=== PATIENT | female | born 1945 | race Caucasian/White ===

== ENCOUNTER 2017-01-08 13:17 | Outpatient (CLI) | payer MEDICARE | END 2017-01-08 13:18 | disposition home or self-care (01) | LOC: DI 13:17 | PROVIDERS: ATTEND Internal Medicine | DX: R60.1 Generalized edema (principal); I51.7 Cardiomegaly; I50.1 Left ventricular failure, unspecified | CPT/HCPCS: 93306 ==

== ENCOUNTER 2018-03-18 13:55 | Outpatient (CLI) | payer MEDICARE ==
[2018-03-18 19:20] LABS: HGB - HEMOGLOBIN 15.8 g/dL (12.0-16.0); MEAN CORPUSCULAR HEMOGLOBIN 28.9 pg (27.0-31.0); MEAN CORPUSCULAR HGB CONC 32.9 g/dL (32.0-36.0); MEAN PLATELET VOLUME 8.1 fL (7.9-10.8); RED BLOOD COUNT 5.48 10^6/uL (4.20-5.40); RED CELL DISTRIBUTION WIDTH 14.6 % (12.0-15.0); WHITE BLOOD COUNT 10.8 x10^3/uL (4.8-10.8)
[2018-03-18 19:21] LABS: CALCIUM 9.4 mg/dL (8.5-10.3); CREATININE 1.1 mg/dL (0.4-1.0)
== END 2018-03-18 13:56 | disposition home or self-care (01) ==
LOC: LAB.WCP 13:55
PROVIDERS: ATTEND Family Medicine
DX: I50.9 Heart failure, unspecified (principal)
CPT/HCPCS: 36415; 80048; 83880; 85027

== ENCOUNTER 2018-03-25 13:51 | Outpatient (CLI) | payer MEDICARE ==
[2018-03-25 19:04] LABS: HGB - HEMOGLOBIN 16.2 g/dL (12.0-16.0); MEAN CORPUSCULAR HEMOGLOBIN 28.6 pg (27.0-31.0); MEAN CORPUSCULAR HGB CONC 32.7 g/dL (32.0-36.0); MEAN CORPUSCULAR VOLUME 87.5 fL (81.0-99.0); MEAN PLATELET VOLUME 7.8 fL (7.9-10.8); RED BLOOD COUNT 5.66 10^6/uL (4.20-5.40); RED CELL DISTRIBUTION WIDTH 14.7 % (12.0-15.0); WHITE BLOOD COUNT 6.8 x10^3/uL (4.8-10.8)
[2018-03-25 19:15] LABS: CALCIUM 9.5 mg/dL (8.5-10.3); CREATININE 1.1 mg/dL (0.4-1.0)
== END 2018-03-25 13:52 | disposition home or self-care (01) ==
LOC: LAB.WCP 13:51
PROVIDERS: ATTEND Family Medicine
DX: I83.009 Varicose veins of unspecified lower extremity with ulcer of unspecified site (principal); I50.9 Heart failure, unspecified
CPT/HCPCS: 36415; 80048; 83880; 85027

== ENCOUNTER 2018-04-01 08:00 | Outpatient (CLI) | payer MEDICARE ==
[2018-04-01 18:50] LABS: HGB - HEMOGLOBIN 15.4 g/dL (12.0-16.0); MEAN CORPUSCULAR HEMOGLOBIN 28.5 pg (27.0-31.0); MEAN CORPUSCULAR HGB CONC 33.1 g/dL (32.0-36.0); MEAN CORPUSCULAR VOLUME 86.1 fL (81.0-99.0); RED BLOOD COUNT 5.39 10^6/uL (4.20-5.40); RED CELL DISTRIBUTION WIDTH 14.8 % (12.0-15.0); WHITE BLOOD COUNT 7.2 x10^3/uL (4.8-10.8)
== END 2018-04-01 08:01 | disposition home or self-care (01) ==
LOC: LAB.WCP 08:00
PROVIDERS: ATTEND Family Medicine
DX: R06.09 Other forms of dyspnea (principal); R06.00 Dyspnea, unspecified
CPT/HCPCS: 36415; 80048; 83880; 85027

== ENCOUNTER 2018-04-14 13:49 | Outpatient (CLI) | payer MEDICARE ==
[2018-04-14 18:51] LABS: HGB - HEMOGLOBIN 15.3 g/dL (12.0-16.0); MEAN CORPUSCULAR HEMOGLOBIN 28.5 pg (27.0-31.0); MEAN CORPUSCULAR VOLUME 86.3 fL (81.0-99.0); MEAN PLATELET VOLUME 8.4 fL (7.9-10.8); RED BLOOD COUNT 5.37 10^6/uL (4.20-5.40); RED CELL DISTRIBUTION WIDTH 15.3 % (12.0-15.0); WHITE BLOOD COUNT 6.1 x10^3/uL (4.8-10.8)
[2018-04-14 19:11] LABS: CALCIUM 9.3 mg/dL (8.5-10.3); CREATININE 0.8 mg/dL (0.4-1.0)
== END 2018-04-14 13:50 | disposition home or self-care (01) ==
LOC: LAB.WCP 13:49
PROVIDERS: ATTEND Family Medicine
DX: R06.09 Other forms of dyspnea (principal); R06.00 Dyspnea, unspecified
CPT/HCPCS: 36415; 80048; 83880; 85027

== ENCOUNTER 2018-05-18 14:26 | Inpatient (IN) | payer MEDICARE ==
--- NOTE | 2018-05-18 15:06 | ED Physician Documentation ---
History of Present Illness - Stated complaint Stated Complaint: WEAKNESS/DIZZY - Chief complaint Chief Complaint: General - Additonal information Additional information: hx from pt 73 f hx CHF was working in yard and felt weak and dizzy and had jaw pain and palp with HR up to 130 no CP no SOA no NV no diaphoresis otherwise well recently Review of Systems Constitutional: reports: Fatigue. denies: Fever, Chills, Sweats Cardiac: reports: Palpitations. denies: Chest pain / pressure (only jaw pain) Respiratory: denies: Dyspnea, Cough GI: denies: Abdominal Pain, Nausea, Vomiting Endocrine: denies: Easy bruising / bleeding Immunocompromised: denies: Immunocompromised PD PAST MEDICAL HISTORY - Past Medical History Cardiovascular: Congestive heart failure, Hypertension, Peripheral Vascular Disease Respiratory: Shortness of breath Neuro: None Endocrine/Autoimmune: None GI: None : None HEENT: Chronic vision loss Psych: Claustrophobia Musculoskeletal: None Derm: None - Past Surgical History /LAND CLASSIFIER: section - Present Medications Home Medications: Ambulatory Orders Medication Instructions Recorded Confirmed Furosemide 20 mg PO DAILY 05/18/18 05/18/18 Lisinopril 20 mg PO DAILY 05/18/18 05/18/18 Metoprolol Tartrate 25 mg PO BID 05/18/18 05/18/18 Spironolactone 25 mg PO DAILY 05/18/18 05/18/18 - Allergies Allergies/Adverse Reactions: Allergies Allergy/AdvReac Type Severity Reaction Status Date / Time No Known Drug Allergies Allergy Verified 05/18/18 14:53 - Social History Smoking Status: Former smoker PD ED PE NORMAL - Vitals Vital signs reviewed: Yes - General General: Alert and oriented X 3 - Neck Neck: Supple, no meningeal sign - Cardiac Cardiac: RRR - Respiratory Respiratory: No respiratory distress, Clear bilaterally - Abdomen Abdomen: Soft, Non tender - Derm Derm: Normal color - Extremities Extremities: No edema, No calf tenderness / cord - Neuro Neuro: Alert and oriented X 3 Results - Vitals Vitals: Vital Signs - 24 hr 05/18/18 05/18/18 05/18/18 14:38 16:30 16:54 Temperature 36.3 C L Heart Rate 69 49 L 57 L Respiratory 20 18 18 Rate Blood Pressure 150/80 H 163/66 H 175/77 H O2 Saturation 94 98 98 Oxygen O2 Source Room air - EKG (time done) 1451 Rate: Rate (enter#) (67) Rhythm: NSR Intervals: LBBB Ischemia: Other (neg sgarbossa) 1507 Other comments: Other comments (right sided EKG = also c/w LBBB) - Labs Labs: Laboratory Tests 05/18/18 05/18/18 05/18/18 15:28 15:28 15:28 WBC 5.7 RBC 5.52 H Hgb 15.8 Hct 47.0 MCV 85.3 MCH 28.6 MCHC 33.5 RDW 15.7 H Plt Count 163 MPV 7.6 L Neut # (Auto) 3.7 Lymph # (Auto) 1.4 L [place] # (Auto) 0.5 Eos # (Auto) 0.1 Baso # (Auto) 0.0 Absolute Nucleated RBC 0.01 Nucleated RBC % 0.1 Sodium 141 Potassium 3.1 L Chloride 101 Carbon Dioxide 31 Anion Gap 9.0 BUN 17 Creatinine 0.8 Estimated GFR (MDRD) 70 L Glucose 102 H Calcium 9.6 Total Bilirubin 1.0 AST 29 ALT 20 Alkaline Phosphatase 59 Troponin I 0.04 Total Protein 6.9 Albumin 4.2 Globulin 2.7 Albumin/Globulin Ratio 1.6 Lipase 47 - Rads (name of study) CXR Radiology: See rad report (borderline cardiomegaly, no acute infiltrate) PD MEDICAL DECISION MAKING - ED course ED course: no old EKG in [facility] called PMD and they have no old EKG either but pt had an echo in 2017 that showed severe LV dysfxn and EF < 20% sx had subsided upon arrival showed EKGs to inpt hospitalist who is also a outside plant technician Dr Gamboa , not a STEMI 1st trop neg will admit for serial CE echo stress etc spoke to hospitalist re admission at 1610 pt given asa in ED no BB 2/2 HR no nitro 2/2 no pain now later in ED stay pt did find name of her outside plant technician Dr Brock at [facility] and DIRECTOR CHEMISTRY was able to obtain old EKGs which also showed LBB, only difference is now Ts are upright laterally - Sepsis Event Vital Signs: Vital Signs - 24 hr 05/18/18 05/18/18 05/18/18 14:38 16:30 16:54 Temperature 36.3 C L Heart Rate 69 49 L 57 L Respiratory 20 18 18 Rate Blood Pressure 150/80 H 163/66 H 175/77 H O2 Saturation 94 98 98 Oxygen O2 Source Room air Departure - Departure Disposition: ED Place in Observation Clinical Impression: Jaw pain, Abnormal EKG Condition: Fair Discharge Date/Time: 05/18/18 18:05
[2018-05-18] MEDS ORDERED: ASPIRIN CHEW 81 MG TABLET PO STA (15:21)
[2018-05-18 15:40] LABS: BASOPHILS % (AUTO) 0.3 %; EOSINOPHILS # (AUTO) 0.1 10^3/uL (0.0-0.7); EOSINOPHILS % (AUTO) 2.1 %; HGB - HEMOGLOBIN 15.8 g/dL (12.0-16.0); LYMPHOCYTES # (AUTO) 1.4 10^3/uL (1.5-3.5); LYMPHOCYTES % (AUTO) 23.9 %; MEAN CORPUSCULAR HEMOGLOBIN 28.6 pg (27.0-31.0); MEAN CORPUSCULAR HGB CONC 33.5 g/dL (32.0-36.0); MEAN CORPUSCULAR VOLUME 85.3 fL (81.0-99.0); MEAN PLATELET VOLUME 7.6 fL (7.9-10.8); MONOCYTES # (AUTO) 0.5 10^3/uL (0.0-1.0); MONOCYTES % (AUTO) 9.6 %; NEUTROPHILS # (AUTO) 3.7 10^3/uL (1.5-6.6); NEUTROPHILS % (AUTO) 64.1 %; PLT - PLATELET COUNT 163 10^3/uL (130-450); RED BLOOD COUNT 5.52 10^6/uL (4.20-5.40); RED CELL DISTRIBUTION WIDTH 15.7 % (12.0-15.0); WHITE BLOOD COUNT 5.7 x10^3/uL (4.8-10.8)
[2018-05-18 15:47] LABS: ALBUMIN 4.2 g/dL (3.2-5.5); ALBUMIN/GLOBULIN RATIO 1.6 (1.0-2.2); CALCIUM 9.6 mg/dL (8.5-10.3); CREATININE 0.8 mg/dL (0.4-1.0); TOTAL PROTEIN 6.9 g/dL (6.7-8.2)
--- NOTE | 2018-05-18 16:17 | XRAY Report ---
Reason: exertional jaw pain Procedure Date: 05/18/2018 Accession Number: [id number] / [id number] Procedure: XR - Chest 2 View X-Ray CPT Code: 37035 FULL RESULT: EXAM: CHEST RADIOGRAPHY EXAM DATE: 05/18/2018 03:53 PM. CLINICAL HISTORY: Exertional jaw pain. COMPARISON: 04/01/2018. TECHNIQUE: 2 views. FINDINGS: Lungs/Pleura: No focal opacities evident. No pleural effusion. No pneumothorax. Normal volumes. Mediastinum: Borderline cardiac size. Calcified aorta, otherwise normal. Other: Some demineralization and exaggerated kyphosis, with degenerative changes at the endplates. No obvious compression fracture deformity. IMPRESSION: No acute disease. RADIA
[2018-05-18] MEDS ORDERED: SODIUM CHLORIDE FLUSH 0.9% 10 ML SYRINGE IVP PRN (17:19)
[2018-05-18] MEDS ORDERED: ACETAMINOPHEN 325 MG TABLET PO PRN (17:19)
[2018-05-18] MEDS ORDERED: PROCHLORPERAZINE 10 MG/2 ML VIAL IVP PRN (17:19)
[2018-05-18] MEDS ORDERED: POTASSIUM CHLORIDE 20 MEQ TABLET PO STA (17:25)
[2018-05-18] MEDS: METOPROLOL TARTRATE 25 MG TABLET PO SCH (20:16)
[2018-05-18] MEDS ORDERED: NITROGLYCERIN SL 0.4 MG TABLET SL PRN (20:42)
[2018-05-19] MEDS: SODIUM CHLORIDE FLUSH 0.9% 10 ML SYRINGE IVP SCH ×4 (01:19→23:49)
[2018-05-19 06:46] LABS: BASOPHILS % (AUTO) 0.4 %; EOSINOPHILS # (AUTO) 0.2 10^3/uL (0.0-0.7); EOSINOPHILS % (AUTO) 3.1 %; HGB - HEMOGLOBIN 16.4 g/dL (12.0-16.0); LYMPHOCYTES # (AUTO) 1.2 10^3/uL (1.5-3.5); LYMPHOCYTES % (AUTO) 24.5 %; MEAN CORPUSCULAR HGB CONC 33.5 g/dL (32.0-36.0); MEAN CORPUSCULAR VOLUME 86.5 fL (81.0-99.0); MEAN PLATELET VOLUME 7.8 fL (7.9-10.8); MONOCYTES # (AUTO) 0.5 10^3/uL (0.0-1.0); MONOCYTES % (AUTO) 10.7 %; NEUTROPHILS % (AUTO) 61.3 %; PLT - PLATELET COUNT 170 10^3/uL (130-450); RED BLOOD COUNT 5.65 10^6/uL (4.20-5.40); RED CELL DISTRIBUTION WIDTH 16.1 % (12.0-15.0); WHITE BLOOD COUNT 4.9 x10^3/uL (4.8-10.8)
[2018-05-19 06:54] LABS: CALCIUM 9.6 mg/dL (8.5-10.3); CREATININE 0.9 mg/dL (0.4-1.0); MAGNESIUM 2.4 mg/dL (1.7-2.8)
[2018-05-19] MEDS: FUROSEMIDE 20 MG TABLET PO SCH ×2 (08:57→17:16)
[2018-05-19] MEDS: METOPROLOL TARTRATE 25 MG TABLET PO SCH ×2 (08:58→20:45)
[2018-05-19] MEDS: POLYETHYLENE GLYCOL 3350 17 GM PACKET PO SCH (08:58)
[2018-05-19] MEDS: LISINOPRIL 20 MG TABLET PO SCH (08:58)
[2018-05-19] MEDS: FAMOTIDINE 20 MG TABLET PO SCH (08:58)
[2018-05-19] MEDS: SPIRONOLACTONE 25 MG TABLET PO SCH (08:59)
[2018-05-19] MEDS ORDERED: SPIRONOLACTONE 25 MG TABLET PO SCH (09:00)
[2018-05-19] MEDS ORDERED: FUROSEMIDE 20 MG TABLET PO SCH (09:00)
[2018-05-19] MEDS ORDERED: SPIRONOLACTONE 25 MG TABLET PO ONE (17:15)
[2018-05-19] MEDS: SACCHAROMYCES BOULARDII 250 MG CAPSULE PO SCH ×2 (17:17→17:23)
--- NOTE | 2018-05-20 01:22 | HISTORY & PHYSICAL EXAMINATION ---
DATE OF SERVICE: 05/18/2018 Physician: Delphine Walton MD HISTORY OF PRESENT ILLNESS: This is a 73-year-old, white female with a history of hypertension that she admits was untreated for many years. One year ago, she went to her doctor for complaints of leg edema and an Echo was done that showed a cardiomyopathy with ejection fraction of 15% to 20%. She was started on beta blockers and diuretics, and other medications are unknown; she was compliant with these. She was also sent to see a Quality Review Trainer who, she states, ordered a stress test and a Holter monitor. She did not have either of these done for "excessive co-pay when she checked with her insurance." She did continue to take the medications and switched primary doctors, saw him in January of this year. She was having worse leg edema. She had adjustment of her diuretics and other management, and was also referred to [facility], where she has been seen several times for weaping water blisters of the lower extremities that got care and have healed, after management from the [facility]. The patient has been doing some gardening and outdoor work, and required carrying heavy pails and, with this, she started to get chest tightness 3 days ago. She sat and rested, and the symptoms went away. Two days later, she had similar symptoms with exertion and had chest tightness that radiated to the left neck, jaw and left ear. With this, she had palpitations and measured her own heart rate using a pulse oximeter that she had at home, and states that her heart rate was extremely variable, between 50, and as high as 130. With these symptoms, she presented to the emergency room after calling her PCP and being told to go to the ER. She has never had symptoms like this. She has never had a stress test, as was first recommended by the Quality Review Trainer about 13 months ago. She denies any syncope, dizziness, or lightheadedness. Denies orthopnea or PND. She states that the leg edema goes up and down, and she does try to elevate her legs when sitting. This is the first time she has ever had palpitations. She states she is compliant with her medications as currently prescribed by the new PCP. . PAST MEDICAL HISTORY 1. Hypertension that apparently was untreated for many years. 2. Leg edema. 3. Cardiomyopathy by Echo, which was done December 2016. ALLERGIES: NONE. MEDICATIONS 1. Spironolactone 25 mg daily. 2. Metoprolol tartrate 25 mg b.i.d. 3. Lisinopril 20 mg daily. 4. Lasix 20 mg daily. FAMILY HISTORY: No family history of heart disease. No inherited diseases, such as cancer. SOCIAL HISTORY: She is an ex-smoker, who quit 1 year ago. She denies any alcohol use or illicit drug use. She lives in a camper by herself. She lives on a [address] next to her sister and [id number], who also have 5 acres of land and own a farm. She was never , has no children. REVIEW OF SYSTEMS: A comprehensive review of systems was performed and the pertinent positives are in the HPI, the rest are negative. PHYSICAL EXAMINATION GENERAL: A white female who is in no distress. She is edentulous. VITAL SIGNS: Blood pressure 150/80, heart rate 69 in sinus rhythm, afebrile, respiratory rate 20, room air saturation 94%. HEENT: Reveals moist oral mucosa. Edentulous. NECK: Without JVD in a vertical position. No carotid bruits. CHEST: Left basal crackles. No rales or rhonchi. CARDIOVASCULAR: Heart sounds have a 2/6 systolic murmur at the lower left sternal border. There is no RV heave. There is no gallop. ABDOMEN: Soft, positive bowel sounds, nontender, not distended. EXTREMITIES: Show 3+ edema to below the knees. She has on ALYLA stockings. The skin was not examined over the lower extremities. NEUROLOGIC: Intact. LABORATORIES: Sodium 141, potassium 3.1, BUN 17, creatinine 0.8. Normal liver tests. Normal bilirubin. Troponin 0.04. EKG: Normal sinus rhythm, left bundle branch block. An old EKG was just found, which also shows sinus rhythm and left bundle branch block from 1 year ago. Chest x-ray: Borderline enlarged cardiac size, calcified aorta. No evidence of CHF. IMPRESSION/DIAGNOSES 1. Unstable angina (new onset of anginal type symptoms). 2. Leg edema. 3. Cardiomyopathy, with severely reduced systolic function, by Echocardiogram done 1 year ago. 4. Palpitations with apparent documented heart rate of 130 briefly. 5. Pulmonary hypertension by Echocardiogram from 01/14. PLAN: Admit patient to telemetry to monitor for tachy dysrhythmia. She is at risk of VTach with this severely reduced LVEF. Obtain an Echo to recheck LV contractility, as well as valve function and PA pressure. Continue with her medications for systolic heart failure including beta rita, EDDA inhibitor, Lasix and Spironolactone. Follow her BMP and magnesium daily, daily weights and I's and O's. Depending on the results of the Echo, current LVEF and troponin values, proceed to a stress test to complete the workup for determining cause of cardiomyopathy. If global hypokinesis is seen, she may have a burned out, untreated hypertensive cardiomyopathy or a valvular cardiomyopathy. There may be need for transfer for an angiogram if the stress test is abnormal, or consideration for transfer for a defibrillator since her EF was severely below 40% one year ago and she is now more than 3 months post documented cardiomyopathy. Alternatively, a LifeVest could be offered and she would then need outpatient followup with a new Quality Review Trainer. CODE STATUS: FULL CODE. DEEP VENOUS THROMBOSIS PROPHYLAXIS: SCDs. ATTESTATION: The patient is expected to be discharged or transferred to another facility within 96 hours: Yes. TD: 05/19/2018 19:17 SAEID
[2018-05-20 06:50] LABS: BASOPHILS % (AUTO) 0.4 %; EOSINOPHILS # (AUTO) 0.1 10^3/uL (0.0-0.7); EOSINOPHILS % (AUTO) 2.7 %; HGB - HEMOGLOBIN 15.3 g/dL (12.0-16.0); LYMPHOCYTES # (AUTO) 1.4 10^3/uL (1.5-3.5); LYMPHOCYTES % (AUTO) 25.9 %; MEAN CORPUSCULAR HEMOGLOBIN 28.8 pg (27.0-31.0); MEAN CORPUSCULAR HGB CONC 33.7 g/dL (32.0-36.0); MEAN CORPUSCULAR VOLUME 85.6 fL (81.0-99.0); MEAN PLATELET VOLUME 7.8 fL (7.9-10.8); MONOCYTES # (AUTO) 0.6 10^3/uL (0.0-1.0); MONOCYTES % (AUTO) 10.2 %; NEUTROPHILS # (AUTO) 3.3 10^3/uL (1.5-6.6); NEUTROPHILS % (AUTO) 60.8 %; PLT - PLATELET COUNT 163 10^3/uL (130-450); RED BLOOD COUNT 5.32 10^6/uL (4.20-5.40); WHITE BLOOD COUNT 5.5 x10^3/uL (4.8-10.8)
[2018-05-20 06:59] LABS: CALCIUM 9.2 mg/dL (8.5-10.3); CREATININE 0.8 mg/dL (0.4-1.0)
[2018-05-20] MEDS: SACCHAROMYCES BOULARDII 250 MG CAPSULE PO SCH ×2 (08:10→17:21)
[2018-05-20] MEDS: METOPROLOL TARTRATE 25 MG TABLET PO SCH (08:10)
[2018-05-20] MEDS: FAMOTIDINE 20 MG TABLET PO SCH (08:13)
[2018-05-20] MEDS: FUROSEMIDE 20 MG TABLET PO SCH ×2 (08:13→17:22)
[2018-05-20] MEDS: LISINOPRIL 20 MG TABLET PO SCH (08:14)
[2018-05-20] MEDS: SPIRONOLACTONE 25 MG TABLET PO SCH (08:14)
[2018-05-20] MEDS: POLYETHYLENE GLYCOL 3350 17 GM PACKET PO SCH (08:16)
[2018-05-20] MEDS: SODIUM CHLORIDE FLUSH 0.9% 10 ML SYRINGE IVP SCH (08:16)
--- NOTE | 2018-05-20 13:03 | PROVIDER PROGRESS NOTE ---
Assessment/Plan - Problem List (1) Unstable angina Assessment/Plan: No further chest tightness or jaw pain at rest, since admission. Trponins are flat, ruling out an acute LA. Plan to proceed to a pharmaceutical stress test. I explained this to patient, who agrees. Continue B-rita. Start ASA daily. (2) Cardiomyopathy Assessment/Plan: The Echo done today showed similar LVEF of 20%, as 1 year ago. Per her description of activity that she can tolerate, she is NYHA class II. The etiology of depressed LVEF has not been elucidated yet. She needs a stress test to evaluate for CAD as the cause of severe systolic heart failure. Continue treating her chronic systolic LV dysfunction with B-blockers, EDDA- Inhibitor and Spironolactone. Monitor Mag, Na, K, BUN/creat, and daily weight. Obtain a BNP. (3) Leg edema Assessment/Plan: As in #2. She likely has RV dysfunction as well as LV failure. It does not appear to be from CKD or liver disease. (4) Hypokalemia Assessment/Plan: Replace. Monitor BMP daily. - Current Meds Current Meds: Current Medications Generic Name Dose Route Start Last Admin Trade Name Freq PRN Reason Stop Dose Admin Famotidine 20 mg 05/19/18 09:00 05/20/18 08:13 Pepcid PO Not Given DAILY MORRIS Furosemide 30 mg 05/19/18 09:00 05/20/18 08:13 Lasix PO 30 mg 0900,1500 MORRIS Administration Lisinopril 20 mg 05/19/18 09:00 05/20/18 08:14 Zestril PO 20 mg DAILY MORRIS Administration Metoprolol Tartrate 25 mg 05/18/18 21:00 05/20/18 08:10 Lopressor PO 25 mg BID MORRIS Administration Polyethylene Glycol 17 gm 05/19/18 09:00 05/20/18 08:16 Miralax PO Not Given DAILY MORRIS Saccharomyces Boulardii 250 mg 05/19/18 17:00 05/20/18 08:10 Florastor PO Not Given BIDWM MORRIS Sodium Chloride 10 ml 05/19/18 01:00 05/20/18 08:16 Normal Saline Flush 0.9% IVP 10 ml 0100,0900,1700 MORRIS Administration Spironolactone 25 mg 05/19/18 09:00 05/20/18 08:14 Aldactone PO 25 mg DAILY MORRIS Administration - Lab Result Fish Bone Diagrams: 05/20/18 06:15 05/20/18 06:15 - Additional Planning My Orders: My Active Orders 05/19/18 17:00 Saccharomyces Lynni [Florastor] 250 mg PO BIDWM 05/20/18 Myocardial Perfusion STR/RST [NM] Routine 05/20/18 09:00 NPO [DIET] Plan Discussed with:: Patient Subjective - Subjective Patient Reports: Resting Comfortably Nursing Reports: Other (Refused am Spironolactone "because she was only taking Lasix at home".) Objective Vital Signs: Vital Signs - 24 hr 05/19/18 05/19/18 05/19/18 15:17 17:30 20:45 Temperature 36.7 C Heart Rate [ 58 L 55 L Brachial] Respiratory 18 Rate Blood Pressure 168/61 H Blood Pressure 160/64 H 167/62 H [Left Brachial artery] O2 Saturation 98 05/19/18 05/19/18 05/20/18 20:48 23:30 05:30 Temperature 36.2 C L 36.4 C L 36.5 C Heart Rate [ 70 50 L 54 L Brachial] Respiratory 16 18 18 Rate Blood Pressure Blood Pressure 168/61 H 140/65 H 117/48 L [Left Brachial artery] O2 Saturation 96 95 97 05/20/18 05/20/18 08:10 08:14 Temperature 36.3 C L Heart Rate [ 49 L Brachial] Respiratory 16 Rate Blood Pressure 136/67 H Blood Pressure 136/57 H [Left Brachial artery] O2 Saturation 94 Oxygen O2 Source Room air I&O (Last 24 Hrs): Intake and Output Totals x24h 05/18/18 05/19/18 05/20/18 23:59 23:59 23:59 Intake Total 100 1240 670 Balance 100 1240 670 General: Alert, Oriented x3 HEENT: Mucous membr. moist/pink, Other (Edentulous) Neck: Supple, No JVD Neuro: Non Focal Cardiovascular: Regular rate, Other (2/6 systolic murmur at LLSB, no S3.) Abdomen: Soft Extremities: Other (2+ tense edema to below shins, she is wearing compression stockings.) - Results Results: Laboratory Results WBC 5.5 x10^3/uL (4.8-10.8) 05/20/18 06:15 RBC 5.32 10^6/uL (4.20-5.40) 05/20/18 06:15 Hgb 15.3 g/dL (12.0-16.0) 05/20/18 06:15 Hct 45.6 % (37.0-47.0) 05/20/18 06:15 MCV 85.6 fL (81.0-99.0) 05/20/18 06:15 MCH 28.8 pg (27.0-31.0) 05/20/18 06:15 MCHC 33.7 g/dL (32.0-36.0) 05/20/18 06:15 RDW 16.0 % (12.0-15.0) H 05/20/18 06:15 Plt Count 163 10^3/uL (130-450) 05/20/18 06:15 MPV 7.8 fL (7.9-10.8) L 05/20/18 06:15 Neut # (Auto) 3.3 10^3/uL (1.5-6.6) 05/20/18 06:15 Lymph # (Auto) 1.4 10^3/uL (1.5-3.5) L 05/20/18 06:15 [place] # (Auto) 0.6 10^3/uL (0.0-1.0) 05/20/18 06:15 Eos # (Auto) 0.1 10^3/uL (0.0-0.7) 05/20/18 06:15 Baso # (Auto) 0.0 10^3/uL (0.0-0.1) 05/20/18 06:15 Absolute Nucleated RBC 0.01 x10^3/uL 05/20/18 06:15 Nucleated RBC % 0.2 /100WBC 05/20/18 06:15 Sodium 142 mmol/L (135-145) 05/20/18 06:15 Potassium 3.2 mmol/L (3.5-5.0) L 05/20/18 06:15 Chloride 107 mmol/L (101-111) 05/20/18 06:15 Carbon Dioxide 27 mmol/L (21-32) 05/20/18 06:15 Anion Gap 8.0 (6-13) 05/20/18 06:15 BUN 26 mg/dL (6-20) H 05/20/18 06:15 Creatinine 0.8 mg/dL (0.4-1.0) 05/20/18 06:15 Estimated GFR (MDRD) 70 (>89) L 05/20/18 06:15 Glucose 107 mg/dL (70-100) H 05/20/18 06:15 Calcium 9.2 mg/dL (8.5-10.3) 05/20/18 06:15 Magnesium 2.4 mg/dL (1.7-2.8) 05/19/18 06:12 Total Bilirubin 1.0 mg/dL (0.2-1.0) 05/18/18 15:28 AST 29 IU/L (10-42) 05/18/18 15:28 ALT 20 IU/L (10-60) 05/18/18 15:28 Alkaline Phosphatase 59 IU/L (42-121) 05/18/18 15:28 Troponin I 0.04 ng/mL (<0.49) 05/19/18 06:12 Total Protein 6.9 g/dL (6.7-8.2) 05/18/18 15:28 Albumin 4.2 g/dL (3.2-5.5) 05/18/18 15:28 Globulin 2.7 g/dL (2.1-4.2) 05/18/18 15:28 Albumin/Globulin Ratio 1.6 (1.0-2.2) 05/18/18 15:28 Lipase 47 U/L (22-51) 05/18/18 15:28
[2018-05-20] MEDS ORDERED: REGADENOSON 0.4 MG/5 ML SYRINGE IVP ONE ×2 (13:18→15:24)
--- NOTE | 2018-05-20 14:43 | MISCELLANEOUS PROVIDER NOTE ---
Miscellaneous Provider Note - - Note: EKG component of Lexiscan stress test Patient was placed on monitor and consent was obtained for Lexiscan stress test. Patient's initial EKG was obtained at rest and then patient was injected with Lexiscan and EKG was monitored with exercise. Patient did not have any chest pain with stress or at rest. The patient did not have any ST elevations or major EKG changes during the stress component of the test. The EKG component of the stress test was negative and we are awaiting nuclear component of stress test.
[2018-05-20 15:49] VITALS: BP 134/60
[2018-05-20] MEDS ORDERED: ASPIRIN EC 81 MG TABLET PO SCH (18:00)
--- NOTE | 2018-05-20 18:59 | Discharge Plan ---
Discharge Plan Disposition: 01 Home, Self Care Condition: Fair Diet: Cardiac Activity Restrictions: Activity as Tolerated Shower Restrictions: No Driving Restrictions: No Weight Bearing: Full Weight Additional Instructions or Follow Up instructions: Your admitted to the hospital with chest pain. You underwent blood tests which were negative for any acute heart attack. You underwent an echocardiogram which showed that you have an ejection fraction of 20-25% which is slightly improved from a few months ago when you were diagnosed with congestive heart failure. You underwent a stress test and the EKG component of your stress test was negative. The nuclear component of your stress test is still pending. Given that you have not had any chest pain since admission and remained stable throughout this hospitalization we feel comfortable discharging you home without the results of the nuclear component of the stress test. I will call you in the morning if there is any abnormal findings on the stress test. You will be continued on your home medication. You did stop taking the spironolactone because you felt it was giving her side effects however when it was given to you here he did not have any side effects therefore I recommend that you restart the spironolactone. Please follow-up with your primary care physician and get a referral for cardiology. Follow-Up Care: [facility] - Cardiac No Smoking: If you smoke, Please STOP! Call for help. Follow-up with: Manoj Masterson MD [Primary Care Provider] -
--- NOTE | 2018-05-20 19:04 | DISCHARGE SUMMARY ---
Discharge Summary Admit Date: 05/18/18 Discharge Date: 05/20/18 Discharging Provider: Luis Antonio Bobo MD Primary Care Provider: Ras Masterson MD Code Status: Attempt Resuscitation Condition at Discharge: Fair Discharge Disposition: 01 Home, Self Care - DIAGNOSES Admission Diagnoses: 1. Unstable angina 2. Leg edema 3. Cardiomyopathy with severely reduced systolic function 4. Palpitation 5. Pulmonary hypertension Discharge Diagnoses with Status of Each Condition: 1. Stable angina: Resolved 2. Moderate Coronary Ischemia: Guarded 3. Ischemic Cardiomyopathy: Guarded 4. Chronic Systolic Heart Failure NYHA Class II: Guarded 3. Leg edema: Stable 4. Hypokalemia: Resolved - HPI History of Present Illness: Patient is a 73-year-old female with a past medical history significant for hypertension that she admits was untreated for many years. One year ago, she went to her primary care doctor for complaints of leg edema and an echo was done that showed a cardiomyopathy with ejection fraction of 15-20%. She was started on beta-blockers and diuretics. She was also seen by gas turbine mechanic whom she states ordered a stress test and Holter monitor. She did not have either of these done for excessive co-pay when she checked with her insurance. She did continue to take medications and switch primary care doctors, saw him in January of this year. She was having worsening leg edema. She had adjustment of her diuretics and other management, and was also referred to [facility] for [place]. She has been seen several times in the [facility] for weeping watery blisters of her lower extremities that have since healed with wound care. The patient has been doing some gardening and outdoor work, and required carrying heavy pills and, with this, she started to get chest tightness 3 days ago. She sat and rested, and the symptoms went away. 2 days later, she had similar symptoms with exertion and had chest tightness that radiated to the left neck, jaw and left ear. With this, she had palpitations and measured her own heart rate using a pulse oximeter that she had at home, and states that her heart rate was extremely variable, between 50 and as high as 130. With the s ymptoms she presented to the emergency room after calling her PCP and being told to go to the ER. She has never had symptoms like this before. She has never had a stress test, as was first recommended by her gas turbine mechanic about 13 months ago. She denies any syncope, dizziness, or lightheadedness. Denies orthopnea or PND. She states that her leg edema goes up and down, and she does try to elevate her legs when sitting. This is the first time she has ever had palpitations. She states she is compliant with her medications as currently prescribed by her new PCP. - HOSPITAL COURSE Hospital Course: (1) Stable angina Assessment/Plan: No further chest tightness or jaw pain at rest, since admission. Troponins are flat, ruling out an acute AL. Myocardial perfusion imaging revealed an abnormal study with moderate ischemia which appears partially reversible. Continue B-rita. ASA daily Patient was discharged home to follow-up with her primary care physician for cardiology referral [facility]. The patient will need an outpatient cardiac cath and possibly could need cardiac stents. She did not have acute coronary syndrome or unstable angina and therefore will be treated as an outpatient. It was explained to the patient that she needs to take it easy for the next several weeks while she gets outpatient workup. She was also told if she has any further chest pain at all to return to the emergency department as she will need to be transferred to a cardiac center for cardiac cath at that time. (2) Moderate Coronary Ischemia Assessment/Plan: Patient has moderate ischemia seen on stress testing. Given that the patient has had chronic congestive heart failure and does not have acute coronary syndrome she appears to be stable for discharge at this time. The patient is completely chest pain-free. Patient however does need urgent follow-up with her primary care physician and cardiology to be scheduled for an outpatient cardiac cath. The patient did not have any changes on her EKG or any elevation in her troponin. She will be continued on aspirin and Lipitor as well as metoprolol for optimal medical management. She was told to return to the emergency department if she has any chest pain after going home. (3) Ischemic Cardiomyopathy Assessment/Plan: The Echo done showed similar LVEF of 20%, as 1 year ago. Per her description of activity that she can tolerate, she is NYHA class II. The etiology of depressed LVEF is likely ischemic given findings on stress test. Continue treating her chronic systolic LV dysfunction with B-blockers, EDDA- Inhibitor and Spironolactone. Appears stable at this time, Patient needs follow up with cardiology urgently to get scheduled for a cardiac cath (4) Chronic Systolic Heart Failure NYHA Class II: Assessment/Plan: Patient appears to have chronic stable systolic heart failure. Her echocardiogram showed similar ejection fraction to 1 year earlier. The patient appears to have class II symptoms with slight limitation in her physical activity. Patient is being optimally managed with metoprolol, lisinopril and spironolactone. Patient does need to be followed up by a gas turbine mechanic as she would qualify for an AICD at this point. (5) Leg edema: Assessment/Plan: As in #2. She likely has RV dysfunction as well as LV failure. It does not appear to be from CKD or liver disease. (6) Hypokalemia Assessment/Plan: Replaced - ALLERGIES Allergies/Adverse Reactions: Allergies Allergy/AdvReac Type Severity Reaction Status Date / Time No Known Drug Allergies Allergy Verified 05/18/18 14:53 - MEDICATIONS Home Medications: Ambulatory Orders Medication Instructions Recorded Confirmed Furosemide 20 mg PO DAILY 05/18/18 05/18/18 Lisinopril 20 mg PO DAILY 05/18/18 05/18/18 Metoprolol Tartrate 25 mg PO BID 05/18/18 05/18/18 Spironolactone 25 mg PO DAILY #60 tablet 05/21/18 - PHYSICAL EXAM AT DISCHARGE General Appearance: positive: No acute distress, Alert Eyes Bilateral: positive: Normal inspection, PERRL, EOMI, Conjunctivae nml, No scleral icterus ENT: positive: ENT inspection nml, Pharynx nml, No signs of dehydration. negative: Purulent nasal drainage, Pharyngeal erythema, Oral lesions Neck: positive: Nml inspection, Thyroid nml, No JVD, Trachea midline. negative: Thyromegaly, Lymphadenopathy (R), Lymphadenopathy (L), Stiff neck, Carotid bruit, Tracheal deviation Respiratory: positive: Chest non-tender, No respiratory distress, Breath sounds nml. negative: Wheezes, Rales, Rhonchi Cardiovascular: positive: Regular rate & rhythm, No murmur, No gallop Peripheral Pulses: positive: 2+ Abdomen: positive: Non-tender, No organomegaly, Nml bowel sounds, No distention Back: positive: Nml inspection. negative: CVA tenderness (R), CVA tenderness (L) Skin: positive: Color nml, No rash, Warm, Dry. negative: Cyanosis, Pallor Extremities: positive: Non-tender, Full ROM, Nml appearance, Pedal edema Neurologic/Psychiatric: positive: Oriented x3, CN's nml (2-12), Motor nml, Se nsation nml, Mood/affect nml - LABS Result Diagrams: 05/20/18 06:15 05/20/18 06:15 Other Lab Results: Laboratory Results WBC 5.5 x10^3/uL (4.8-10.8) 05/20/18 06:15 RBC 5.32 10^6/uL (4.20-5.40) 05/20/18 06:15 Hgb 15.3 g/dL (12.0-16.0) 05/20/18 06:15 Hct 45.6 % (37.0-47.0) 05/20/18 06:15 MCV 85.6 fL (81.0-99.0) 05/20/18 06:15 MCH 28.8 pg (27.0-31.0) 05/20/18 06:15 MCHC 33.7 g/dL (32.0-36.0) 05/20/18 06:15 RDW 16.0 % (12.0-15.0) H 05/20/18 06:15 Plt Count 163 10^3/uL (130-450) 05/20/18 06:15 MPV 7.8 fL (7.9-10.8) L 05/20/18 06:15 Neut # (Auto) 3.3 10^3/uL (1.5-6.6) 05/20/18 06:15 Lymph # (Auto) 1.4 10^3/uL (1.5-3.5) L 05/20/18 06:15 Tensas # (Auto) 0.6 10^3/uL (0.0-1.0) 05/20/18 06:15 Eos # (Auto) 0.1 10^3/uL (0.0-0.7) 05/20/18 06:15 Baso # (Auto) 0.0 10^3/uL (0.0-0.1) 05/20/18 06:15 Absolute Nucleated RBC 0.01 x10^3/uL 05/20/18 06:15 Nucleated RBC % 0.2 /100WBC 05/20/18 06:15 Sodium 142 mmol/L (135-145) 05/20/18 06:15 Potassium 3.2 mmol/L (3.5-5.0) L 05/20/18 06:15 Chloride 107 mmol/L (101-111) 05/20/18 06:15 Carbon Dioxide 27 mmol/L (21-32) 05/20/18 06:15 Anion Gap 8.0 (6-13) 05/20/18 06:15 BUN 26 mg/dL (6-20) H 05/20/18 06:15 Creatinine 0.8 mg/dL (0.4-1.0) 05/20/18 06:15 Estimated GFR (MDRD) 70 (>89) L 05/20/18 06:15 Glucose 107 mg/dL (70-100) H 05/20/18 06:15 Calcium 9.2 mg/dL (8.5-10.3) 05/20/18 06:15 Magnesium 2.4 mg/dL (1.7-2.8) 05/19/18 06:12 Total Bilirubin 1.0 mg/dL (0.2-1.0) 05/18/18 15:28 AST 29 IU/L (10-42) 05/18/18 15:28 ALT 20 IU/L (10-60) 05/18/18 15:28 Alkaline Phosphatase 59 IU/L (42-121) 05/18/18 15:28 Troponin I 0.04 ng/mL (<0.49) 05/19/18 06:12 B-Natriuretic Peptide 497 pg/mL (5-100) H 05/20/18 06:15 Total Protein 6.9 g/dL (6.7-8.2) 05/18/18 15:28 Albumin 4.2 g/dL (3.2-5.5) 05/18/18 15:28 Globulin 2.7 g/dL (2.1-4.2) 05/18/18 15:28 Albumin/Globulin Ratio 1.6 (1.0-2.2) 05/18/18 15:28 Lipase 47 U/L (22-51) 05/18/18 15:28 - DIAGNOSTIC IMAGING Diagnostic Imaging Results: Final report reviewed Diagnostic Imaging Results Comments: Chest x-ray Impression: No acute disease Echocardiogram Severe left ventricular enlargement. Left ventricular wall thickness is normal. Overall left ventricular systolic function is severely impaired with an ejection fraction of 20-25%. Pseudo-normal left ventricular filling pattern consistent with grade 2 diastolic dysfunction. The right ventricle is normal in size and function. Severe increase in left atrial volume index. Mild to moderate right atrial enlargement. The aortic valve is trileaflet. There is no evidence of aortic stenosis. There is trace mild aortic regurgitation. There is thickening of the mitral valve leaflets. No mitral stenosis noted. There is mild to moderate mitral regurgitation. The tricuspid valve appears structurally normal. No tricuspid stenosis noted. Mild to moderate tricuspid regurgitation. Mildly abnormal right heart pressures. The right ventricular systolic pressure at rest is 46 mmHg. The pulmonic valve is normal. Mild to trace pulmonic regurgitation. There is no pulmonic stenosis noted. There is no pericardial effusion noted. The intra-atrial septum appears normal. The interatrial septum is intact on color flow imaging. The aortic root appears normal. The pulmonary artery is normal. The inferior vena cava is normal with greater than 50% inspiratory collapse which is suggestive of a right atrial pressure of 3 mmHg. No mass or thrombus identified. There is no pleural effusion noted. Myocardial perfusion scan Impression: 1. There are partially fixed and partially reversible moderate to severe perfusion defects in the anteroseptal, anterior, lateral and inferolateral stover. 2. Abnormal left ventricular ejection fraction of 30%. 3. Diffuse hypokinesis. 4. Based on computer analysis, severely abnormal study with moderate ischemia. - FOLLOW UP Follow Up: The patient will need to urgently schedule an appointment with her primary care doctor and get referral for cardiology. The patient needs to be set up for an outpatient cardiac cath. The patient has findings on stress test of moderate ischemia which is partially reversible. The patient's chest pain was controlled during the hospitalization and she appears to have stable angina with no evidence of acute coronary syndrome as she had normal troponins. - TIME SPENT Time Spent in Discharge (Minutes): 45
--- NOTE | 2018-05-21 09:22 | Nuclear Medicine Report ---
Reason: Chest Pain, Cardiomyopathy Procedure Date: 05/20/2018 Accession Number: [id number] / [id number] Procedure: NM - Myocardial Perfusion STR/RST CPT Code: FULL RESULT: EXAM: SINGLE-ISOTOPE PHARMACOLOGICAL STRESS TEST WITH REGADENOSON. SINGLE-ISOTOPE AND ONE-DAY REST/STRESS MYOCARDIAL PERFUSION SCANS WITH TOMOGRAPHIC IMAGING, QUANTITATIVE ANALYSIS, WALL MOTION ANALYSIS AND CALCULATION OF EJECTION FRACTION. EXAM DATE: 05/20/2018 12:55 PM. CLINICAL HISTORY: Chest Pain, Cardiomyopathy. COMPARISON: None available. TECHNIQUE: After the intravenous administration of 10.7 mCi of Tc-99m sestamibi, a rest myocardial perfusion scan was done with tomography. Motion correction was applied when appropriate. After an appropriate delay, pharmacological stress was performed with the infusion of 0.4 mg regadenoson per protocol. According to protocol, 43.3 mCi of Tc-99m sestamibi was injected for stress myocardial perfusion scan. Motion correction was applied when appropriate. Gated tomographic images were obtained for wall motion analysis and computation of left ventricular ejection fraction. FINDINGS: There is a relatively large, partially fixed and partially reversible defect in the anterior and anteroseptal stover. There is a relatively large, partially fixed and partially reversible defect in the lateral and inferolateral stover. Computer analysis: Summed stress score 16 Summed rest score 7 Summed difference score 8 Wall motion analysis demonstrates diffuse hypokinesis. The left ventricular end-diastolic volume is 167 cc. The left ventricular end-systolic volume is 118 cc. The left ventricular ejection fraction is calculated to be 30%. IMPRESSION: 1. There are partially fixed and partially reversible moderate to severe perfusion defects in the anteroseptal, anterior, lateral, and inferolateral stover. 2. Abnormal left ventricular ejection fraction of 30%. 3. Diffuse hypokinesis. 4. Based on computer analysis, severely abnormal study with moderate ischemia. RADIA
== END 2018-05-20 20:30 | disposition home or self-care (01) | DRG 311 ==
LOC: ED 14:26 → OBS 17:19 → OBSVTOIN 20:39 → MS2 05-19 07:34
PROVIDERS: ADMIT Internal Medicine; ATTEND Internal Medicine
DX: R68.84 Jaw pain (principal); R94.31 Abnormal electrocardiogram [ECG] [EKG]; I44.7 Left bundle-branch block, unspecified; I20.8 Other forms of angina pectoris; I50.9 Heart failure, unspecified; I73.9 Peripheral vascular disease, unspecified; I50.22 Chronic systolic (congestive) heart failure; I25.5 Ischemic cardiomyopathy; I11.0 Hypertensive heart disease with heart failure; E87.6 Hypokalemia; I27.20 Pulmonary hypertension, unspecified; Z79.899 Other long term (current) drug therapy; Z87.891 Personal history of nicotine dependence
CPT/HCPCS: 36415; 71046; 78452; 80048; 80053; 83690; 83735; 83880; 84484; 85025; 93005; 93017; 93306; 99283; 99284

== ENCOUNTER 2019-10-25 10:53 | Outpatient (CLI) | payer MEDICARE ==
[2019-10-25 18:46] LABS: BASOPHILS % (AUTO) 0.5 %; EOSINOPHILS # (AUTO) 0.1 10^3/uL (0.0-0.7); EOSINOPHILS % (AUTO) 1.9 %; HGB - HEMOGLOBIN 14.7 g/dL (12.0-16.0); LYMPHOCYTES # (AUTO) 1.5 10^3/uL (1.5-3.5); LYMPHOCYTES % (AUTO) 23.7 %; MEAN CORPUSCULAR HEMOGLOBIN 30.9 pg (27.0-31.0); MEAN CORPUSCULAR HGB CONC 32.3 g/dL (32.0-36.0); MEAN CORPUSCULAR VOLUME 95.6 fL (81.0-99.0); MONOCYTES # (AUTO) 0.6 10^3/uL (0.0-1.0); MONOCYTES % (AUTO) 9.7 %; PLT - PLATELET COUNT 202 10^3/uL (130-450); RED BLOOD COUNT 4.76 10^6/uL (4.20-5.40); RED CELL DISTRIBUTION WIDTH 12.2 % (12.0-15.0); WHITE BLOOD COUNT 6.2 x10^3/uL (4.8-10.8)
[2019-10-25 19:08] LABS: ALBUMIN/GLOBULIN RATIO 1.5 (1.0-2.2); ALKALINE PHOSPHATASE 42 IU/L (42-121); ALT ALANINE AMINOTRANSFERASE 17 IU/L (10-60); AST ASPARTATE AMINOTRANSFERASE 21 IU/L (10-42); BILIRUBIN,TOTAL 0.7 mg/dL (0.2-1.0); BUN - BLOOD UREA NITROGEN 19 mg/dL (6-20); CALCIUM 9.6 mg/dL (8.5-10.3); CARBON DIOXIDE - CO2 30 mmol/L (21-32); CHLORIDE 105 mmol/L (101-111); CHOL/HDL RATIO 4.5 (<4.4); CHOLESTEROL 198 mg/dL; GFR - MDRD 54 (>89); GLUCOSE 101 mg/dL (70-100); HDL CHOLESTEROL 44 mg/dL; LDL CHOLESTEROL,CALCULATED 124 mg/dL; LDL/HDL RATIO 2.8 (<4.4); SODIUM 141 mmol/L (135-145); TOTAL PROTEIN 6.6 g/dL (6.7-8.2); VLDL CHOLESTEROL 30 mg/dL
== END 2019-10-25 23:59 | disposition home or self-care (01) ==
LOC: LAB.N 10:53
PROVIDERS: ATTEND Family Medicine
DX: I11.0 Hypertensive heart disease with heart failure (principal); I25.5 Ischemic cardiomyopathy; I50.9 Heart failure, unspecified
CPT/HCPCS: 36415; 80053; 80061; 83721; 83880; 85025

== ENCOUNTER 2020-09-17 08:00 | Outpatient (CLI) | payer MEDICARE ==
[2020-09-17 18:44] LABS: BASOPHILS % (AUTO) 0.4 %; EOSINOPHILS # (AUTO) 0.2 10^3/uL (0.0-0.7); EOSINOPHILS % (AUTO) 2.4 %; HGB - HEMOGLOBIN 14.7 g/dL (12.0-16.0); LYMPHOCYTES # (AUTO) 1.5 10^3/uL (1.5-3.5); LYMPHOCYTES % (AUTO) 19.2 %; MEAN CORPUSCULAR HEMOGLOBIN 30.1 pg (27.0-31.0); MEAN CORPUSCULAR HGB CONC 31.8 g/dL (32.0-36.0); MEAN CORPUSCULAR VOLUME 94.7 fL (81.0-99.0); MONOCYTES # (AUTO) 0.6 10^3/uL (0.0-1.0); MONOCYTES % (AUTO) 7.9 %; NEUTROPHILS # (AUTO) 5.3 10^3/uL (1.5-6.6); NEUTROPHILS % (AUTO) 69.7 %; PLT - PLATELET COUNT 181 10^3/uL (130-450); RED BLOOD COUNT 4.88 10^6/uL (4.20-5.40); WHITE BLOOD COUNT 7.6 x10^3/uL (4.8-10.8)
[2020-09-17 18:52] LABS: ALBUMIN 4.2 g/dL (3.2-5.5); ALBUMIN/GLOBULIN RATIO 1.8 (1.0-2.2); ALKALINE PHOSPHATASE 45 IU/L (42-121); ALT ALANINE AMINOTRANSFERASE 16 IU/L (10-60); AST ASPARTATE AMINOTRANSFERASE 21 IU/L (10-42); BILIRUBIN,TOTAL 0.7 mg/dL (0.2-1.0); BUN - BLOOD UREA NITROGEN 20 mg/dL (6-20); CALCIUM 9.7 mg/dL (8.5-10.3); CARBON DIOXIDE - CO2 31 mmol/L (21-32); CHLORIDE 104 mmol/L (101-111); CHOL/HDL RATIO 3.9 (<4.4); CHOLESTEROL 205 mg/dL; CREATININE 0.9 mg/dL (0.4-1.0); GLUCOSE 98 mg/dL (70-100); HDL CHOLESTEROL 52 mg/dL; LDL CHOLESTEROL,CALCULATED 132 mg/dL; LDL/HDL RATIO 2.5 (<4.4); TOTAL PROTEIN 6.6 g/dL (6.7-8.2); VLDL CHOLESTEROL 21 mg/dL
== END 2020-09-17 23:59 | disposition home or self-care (01) ==
LOC: LAB.WCP 08:00
PROVIDERS: ATTEND Nurse Practitioner Family
DX: E78.5 Hyperlipidemia, unspecified (principal); I13.0 Hypertensive heart and chronic kidney disease with heart failure and stage 1 through stage 4 chronic kidney disease, or unspecified chronic kidney disease; I50.9 Heart failure, unspecified; N18.30 Chronic kidney disease, stage 3 unspecified
CPT/HCPCS: 36415; 80053; 80061; 83721; 84443; 85025

== ENCOUNTER 2020-09-26 08:48 | Outpatient (CLI) | payer MEDICARE | END 2020-09-26 08:49 | disposition home or self-care (01) | LOC: DI 08:48 | PROVIDERS: ATTEND Nurse Practitioner Family | DX: I50.9 Heart failure, unspecified (principal) | CPT/HCPCS: 93306 ==

== ENCOUNTER 2021-05-01 09:57 | Outpatient (CLI) | payer MEDICARE ==
[2021-05-01 12:26] LABS: BASOPHILS % (AUTO) 0.5 %; EOSINOPHILS # (AUTO) 0.5 10^3/uL (0.0-0.7); EOSINOPHILS % (AUTO) 7.2 %; HCT - HEMATOCRIT 45.4 % (37.0-47.0); HGB - HEMOGLOBIN 14.3 g/dL (12.0-16.0); LYMPHOCYTES # (AUTO) 1.8 10^3/uL (1.5-3.5); LYMPHOCYTES % (AUTO) 28.3 %; MEAN CORPUSCULAR HEMOGLOBIN 29.9 pg (27.0-31.0); MEAN CORPUSCULAR HGB CONC 31.5 g/dL (32.0-36.0); MEAN CORPUSCULAR VOLUME 94.8 fL (81.0-99.0); MEAN PLATELET VOLUME 9.9 fL (7.9-10.8); MONOCYTES # (AUTO) 0.5 10^3/uL (0.0-1.0); MONOCYTES % (AUTO) 7.4 %; NEUTROPHILS # (AUTO) 3.5 10^3/uL (1.5-6.6); NEUTROPHILS % (AUTO) 56.4 %; PLT - PLATELET COUNT 205 10^3/uL (130-450); RED BLOOD COUNT 4.79 10^6/uL (4.20-5.40); RED CELL DISTRIBUTION WIDTH 11.9 % (12.0-15.0); WHITE BLOOD COUNT 6.2 x10^3/uL (4.8-10.8)
[2021-05-01 12:45] LABS: CALCIUM 9.8 mg/dL (8.5-10.3); POTASSIUM 4.5 mmol/L (3.5-5.0)
== END 2021-05-01 23:59 | disposition home or self-care (01) ==
LOC: LAB.WCP 09:57
PROVIDERS: ATTEND Family Medicine
DX: N18.30 Chronic kidney disease, stage 3 unspecified (principal)
CPT/HCPCS: 36415; 80048; 85025

== ENCOUNTER 2022-09-17 12:45 | Outpatient (CLI) | payer MEDICARE | END 2022-09-17 12:46 | disposition home or self-care (01) | LOC: LAB 12:45 | PROVIDERS: ATTEND Ophthalmology | DX: Z01.812 Encounter for preprocedural laboratory examination (principal); H25.812 Combined forms of age-related cataract, left eye; Z20.822 Contact with and (suspected) exposure to COVID-19 ==

== ENCOUNTER 2022-09-18 09:47 | Day surgery (SDC) | payer MEDICARE ==
[~2022-09-18 09:47] MED LIST: CYCLOPENTOLATE 1% OPHTH DROPS 2 ML ONE; KETOROLAC 0.45% OPHTH DROPS ONE; PHENYLEPHRINE 2.5% OPHTH 2 ML DROPS ONE; PROPARACAINE 0.5% OPHTH DROPS 15 ML ONE
[2022-09-18] MEDS ORDERED: LACTATED RINGERS 1,000 ML IV ONE ×2 (10:00→11:58)
[2022-09-18] MEDS ORDERED: BRIMONIDINE 0.2% OPHTH DROPS 5 ML ONE (11:15)
[2022-09-18] MEDS ORDERED: TRIAMCIN/MOXIFLOX OPHTHALMIC 0.6 ML VIAL IO ONE ×2 (11:15→11:17)
[2022-09-18] MEDS ORDERED: BSS/LIDOCAINE/EPINEPHRINE 1 ML SYRINGE ONE (11:15)
[2022-09-18] MEDS ORDERED: EPINEPHrine 1 MG/ML AMP ONE (11:15)
[2022-09-18] MEDS ORDERED: VANCOMYCIN OPHTH (TOPICAL) 10 MG/ML SYRINGE ONE (11:15)
[2022-09-18] MEDS ORDERED: TIMOLOL 0.5% OPHTH DROPS ONE (11:15)
[2022-09-18] MEDS ORDERED: TRYPAN BLUE 0.5 ML SYRINGE IO ONE ×2 (11:15→11:42)
[2022-09-18] MEDS ORDERED: TIMOLOL 0.5% OPHTH DROPS OPTH ONE (11:16)
[2022-09-18] MEDS ORDERED: EPINEPHrine 1 MG/ML AMP IR ONE (11:16)
[2022-09-18] MEDS ORDERED: BRIMONIDINE 0.2% OPHTH DROPS 5 ML OPTH ONE (11:16)
[2022-09-18] MEDS ORDERED: BSS/LIDOCAINE/EPINEPHRINE 1 ML SYRINGE IO ONE (11:17)
[2022-09-18] MEDS ORDERED: PROPARACAINE 0.5% OPHTH DROPS 15 ML EACHEYE ONE (11:18)
[2022-09-18] MEDS ORDERED: VANCOMYCIN OPHTH (TOPICAL) 10 MG/ML SYRINGE TOP ONE (11:21)
--- NOTE | 2022-09-18 11:27 | ANESTHESIA ---
Pre-Anesthesia VS, & Labs - Diagnosis L cataract - Procedure L PhacoIOL Vital Signs: Temp Pulse Resp BP Pulse Ox O2 Flow Rate 36.4 C L 55 L 18 188/69 H 96 09/18/22 10:00 09/18/22 10:00 09/18/22 10:00 09/18/22 10:00 09/18/22 10:00 Height: 5 ft 4 in Weight (kg): 78.9 kg Body Mass Index: 29.8 BMI Classification: Overweight - NPO >8 hours - Is Patient ?: No Home Medications and Allergies Furosemide 20 mg PO DAILY 05/18/18 Metoprolol Tartrate 25 mg PO BID 05/18/18 lisinopriL [Lisinopril] 20 mg PO DAILY 05/18/18 Allergies/Adverse Reactions: Allergies Allergy/AdvReac Type Severity Reaction Status Date / Time No Known Drug Allergies Allergy Verified 09/18/22 10:27 Anes History & Medical History - Anesthetic History Anesthesia Complications: reports: No previous complications Family history of Anesthesia Complications: Denies Family history of Malignant Hyperthermia: Denies - Medical History Cardiovascular: reports: Congestive heart failure, Hypertension, Peripheral Vascular Disease Pulmonary: reports: Shortness of breath Gastrointestinal: reports: None Urinary: reports: None Neuro: reports: None Musculoskeletal: reports: None Endocrine/Autoimmune: reports: None Blood Disorders: reports: None Skin: reports: None Smoking Status: Former smoker - Surgical History Gynecologic: reports: section Exam General: Alert, Oriented x3, Cooperative Dental: WNL Mouth Openin Fingerbreadth Neck Mobility: Normal Mallampati classification: II Thyromental Distance: less than 4 cm Respiratory: Lungs clear Cardiovascular: Regular rate Plan Anesthesia Type: MAC Consent for Procedure(s) Verified and Reviewed: Yes Code Status: Attempt Resuscitation ASA classification: 2-Mild systemic disease Is this case an emergency?: No
[2022-09-18] MEDS ORDERED: MIDAZOLAM 2 MG/2 ML VIAL ONE (11:39)
--- NOTE | 2022-09-18 12:00 | OPERATIVE REPORT ---
Operative Report - Other Other Information/Narrative: Date of Surgery: Preop Dx: Complex, visually significant cataract left eye. Complex due to poor red reflex requiring Trypan Blue to stain the capsule. This was the first cataract surgery. Postop Dx: Same Procedure: Phacoemulsification with posterior chamber intraocular lens implant left eye Surgeon: Dr. Jairon Lerma Anesthesia: Monitored anesthesia care Complications: None Operative Indications: This is a 77-year-old F with progressive vision loss in the left eye due to brunescent sclerotic, 1+ cortical and 3+ posterior subcapsular cataract. Best corrected visual acuity was count fingers with glare to hand motion vision in the left eye. Indications for surgery were: - Overall decrease in vision - Difficulty seeing words on a computer screen - Difficulty reading - Difficulty seeing words, closed captions, or game scores on TV - Difficulty seeing street signs - Difficulty driving in low light or at night - Difficulty driving at night because of headlights from other vehicles - Difficulty with glare or bright lights in any situation The patient was consented at length concerning the risks and benefits of cataract surgery after which the patient expressed a desire to proceed with surgery. Operative Procedure: The patient was taken into OR#3 and placed under monitored anesthesia care. A surgical time-out was conducted confirming correct patient, correct procedure, and correct surgical site. The patient was given topical anesthesia and then prepped and draped in the usual sterile fashion. The eye was entered at the 6 and 3 oclock positions. Intracameral Shugarcaine was injected into the anterior chamber followed by a dispersive viscoelastic. A continuous-tear curvilinear capsulorhexis was started but visualization of the rhexis was poor so Trypan Blue was injected over the capsule in order to complete the rhexis. The nucleus was hydrodissected and phacoemulsified. This was a very hard lens. The cortex was evacuated using automated infusion and aspiration. A cohesive viscoelastic was injected into the capsular bag and a 11.5 diopter intraocular lens was inserted into the bag. Infusion and aspiration were used to evacuate the viscoelastic materials from the eye. The wounds were hydrated and the eye inflated to physiologic pressure using balanced salt solution. Approximately 0.25ml of a mixture of triamcinolone and moxifloxacin was injected trans-sclerally into the vitreous in the inferotemporal quadrant using a 30 gauge cannula. An additional 0.25ml of a mixture of triamcinolone and moxifloxacin was injected subconjunctivally in the superior quadrant for infection and inflammation prophylaxis. Wound integrity was checked with Weck- Liberty sponges. The patient was taken from the operating room in good condition and given post-op instructions.
[2022-09-18 12:36] VITALS: BP 139/74
--- NOTE | 2022-09-18 17:17 | ANESTHESIA POST OP EVALUATION ---
Anesthesia Post Eval - Post Anesthesia Eval Vitals: Last Vital Signs Temp 36.8 C 09/18/22 12:35 Pulse 51 L 09/18/22 12:35 Resp 16 09/18/22 12:35 BP 139/74 H 09/18/22 12:35 Pulse Ox 96 09/18/22 12:35 O2 Flow Rate CV Function Including HR & BP: Stable Pain Control: Satisfactory Nausea & Vomiting: Negative Mental Status: Baseline Respiratory Status: Airway Patent Hydration Status: Satisfactory Anesthesia Complications: None
== END 2022-09-18 09:48 | disposition home or self-care (01) ==
LOC: SDS 09:47
PROVIDERS: ATTEND Ophthalmology
DX: H25.812 Combined forms of age-related cataract, left eye (principal); I11.0 Hypertensive heart disease with heart failure; I50.9 Heart failure, unspecified; Z87.891 Personal history of nicotine dependence
CPT/HCPCS: 66984; A9270; J3490; J7120

== ENCOUNTER 2022-11-20 06:59 | Day surgery (SDC) | payer MEDICARE ==
[2022-11-20] MEDS ORDERED: LACTATED RINGERS 1,000 ML IV ONE ×2 (07:25→09:02)
[2022-11-20] MEDS ORDERED: MIDAZOLAM 2 MG/2 ML VIAL ONE (08:25)
--- NOTE | 2022-11-20 08:25 | ANESTHESIA ---
Pre-Anesthesia VS, & Labs - Diagnosis right combined cataract - Procedure right cataract extraction with IOL Vital Signs: Temp Pulse Resp BP Pulse Ox O2 Flow Rate 36.3 C L 56 L 16 212/72 H 95 0 11/20/22 07:17 11/20/22 07:17 11/20/22 07:17 11/20/22 07:17 11/20/22 07:17 11/20/22 07:17 Height: 5 ft 4 in Weight (kg): 79.7 kg Body Mass Index: 30.1 BMI Classification: Obese - NPO >8 hours - Is Patient ?: No Home Medications and Allergies Furosemide 20 mg PO DAILY 05/18/18 Metoprolol Tartrate 25 mg PO BID 05/18/18 lisinopriL [Lisinopril] 20 mg PO DAILY 05/18/18 Allergies/Adverse Reactions: Allergies Allergy/AdvReac Type Severity Reaction Status Date / Time No Known Drug Allergies Allergy Verified 09/18/22 10:27 Anes History & Medical History - Medical History Cardiovascular: reports: Congestive heart failure, Hypertension, Peripheral Vascular Disease Pulmonary: reports: Shortness of breath Gastrointestinal: reports: None Urinary: reports: None Neuro: reports: None Musculoskeletal: reports: None Endocrine/Autoimmune: reports: None Blood Disorders: reports: None Skin: reports: None Smoking Status: Former smoker - Surgical History Eyes Ears Nose Throat (EENT): reports: Cataracts Gynecologic: reports: section Exam General: Alert, Oriented x3 Dental: WNL Neck Mobility: Normal Mallampati classification: II Thyromental Distance: greater than 6 cm Respiratory: Lungs clear Cardiovascular: Regular rate Plan Anesthesia Type: MAC Consent for Procedure(s) Verified and Reviewed: Yes Code Status: Attempt Resuscitation ASA classification: 3-Severe systemic disease Is this case an emergency?: No
[2022-11-20] MEDS ORDERED: TRIAMCIN/MOXIFLOX OPHTHALMIC 0.6 ML VIAL IO ONE ×2 (08:26→08:48)
[2022-11-20] MEDS ORDERED: EPINEPHrine 1 MG/ML AMP ONE (08:26)
[2022-11-20] MEDS ORDERED: BRIMONIDINE 0.2% OPHTH DROPS 5 ML ONE (08:27)
[2022-11-20] MEDS ORDERED: VANCOMYCIN OPHTH (TOPICAL) 10 MG/ML SYRINGE ONE (08:27)
[2022-11-20] MEDS ORDERED: TIMOLOL 0.5% OPHTH DROPS ONE (08:27)
[2022-11-20] MEDS ORDERED: BSS/LIDOCAINE/EPINEPHRINE 1 ML VIAL ONE (08:27)
[2022-11-20] MEDS ORDERED: TIMOLOL 0.5% OPHTH DROPS OPTH ONE (08:48)
[2022-11-20] MEDS ORDERED: BSS/LIDOCAINE/EPINEPHRINE 1 ML SYRINGE IO ONE (08:48)
[2022-11-20] MEDS ORDERED: BRIMONIDINE 0.2% OPHTH DROPS 5 ML OPTH ONE (08:48)
[2022-11-20] MEDS ORDERED: EPINEPHrine 1 MG/ML AMP IR ONE (08:48)
[2022-11-20] MEDS ORDERED: PROPARACAINE 0.5% OPHTH DROPS 15 ML EACHEYE ONE (08:49)
[2022-11-20] MEDS ORDERED: VANCOMYCIN OPHTH (TOPICAL) 10 MG/ML SYRINGE TOP ONE (08:49)
--- NOTE | 2022-11-20 09:09 | OPERATIVE REPORT ---
Operative Report - Other Other Information/Narrative: Date of Surgery: 11/20/22 Preop Dx: Visually significant cataract right eye. Cataract surgery was performed in the left eye on . Postop Dx: Same Procedure: Phacoemulsification with posterior chamber intraocular lens implant right eye Surgeon: Dr. Jairon Lerma Anesthesia: Monitored anesthesia care Complications: None Operative Indications: This is a 77-year-old F with progressive vision loss in the right eye due to 2+ nuclear sclerotic and 2-3+ posterior subcapsular cataract. Best corrected visual acuity was 20/150 with glare to hand motion vision in the right eye. Indications for surgery were: - Overall decrease in vision - Difficulty seeing words on a computer screen - Difficulty reading - Difficulty seeing words, closed captions, or game scores on TV - Difficulty seeing street signs - Difficulty driving in low light or at night - Difficulty driving at night because of headlights from other vehicles - Difficulty with glare or bright lights in any situation The patient was consented at length concerning the risks and benefits of cataract surgery after which the patient expressed a desire to proceed with surgery. Operative Procedure: The patient was taken into OR#3 and placed under monitored anesthesia care. A surgical time-out was conducted confirming correct patient, correct procedure, and correct surgical site. The patient was given topical anesthesia and then prepped and draped in the usual sterile fashion. The eye was entered at the 6 and 3 oclock positions. Intracameral Shugarcaine was injected into the anterior chamber followed by a dispersive viscoelastic. A continuous-tear curvilinear capsulorhexis was performed. The nucleus was hydrodissected and phacoemulsified. The cortex was evacuated using automated infusion and aspiration. A cohesive viscoelastic was injected into the capsular bag and a 11.5 diopter intraocular lens was inserted into the bag. Infusion and aspiration were used to evacuate the viscoelastic materials from the eye. The wounds were hydrated and the eye inflated to physiologic pressure using balanced salt solution. Approximately 0.25ml of a mixture of triamcinolone and moxifloxacin was injected trans-sclerally into the vitreous in the inferotemporal quadrant using a 30 gauge cannula. An additional 0.25ml of a mixture of triamcinolone and moxifloxacin was injected subconjunctivally in the superior quadrant for infection and inflammation prophylaxis. Wound integrity was checked with Weck-Liberty sponges. The patient was taken from the operating room in good condition and given post-op instructions.
--- NOTE | 2022-11-20 09:17 | ANESTHESIA POST OP EVALUATION ---
Anesthesia Post Eval - Post Anesthesia Eval Vitals: Last Vital Signs Temp 36.0 C L 11/20/22 09:08 Pulse 50 L 11/20/22 09:08 Resp 14 11/20/22 09:08 BP 157/57 H 11/20/22 09:08 Pulse Ox 100 11/20/22 09:08 O2 Flow Rate 0 11/20/22 07:17 CV Function Including HR & BP: Stable Pain Control: Satisfactory Nausea & Vomiting: Negative Mental Status: Baseline Respiratory Status: Airway Patent Hydration Status: Satisfactory Anesthesia Complications: None
[2022-11-20 09:25] VITALS: BP 148/48
== END 2022-11-20 07:00 | disposition home or self-care (01) ==
LOC: SDS 06:59
PROVIDERS: ATTEND Ophthalmology
DX: H25.811 Combined forms of age-related cataract, right eye (principal); Z98.42 Cataract extraction status, left eye; E66.9 Obesity, unspecified; Z68.30 Body mass index [BMI] 30.0-30.9, adult; Z87.891 Personal history of nicotine dependence
CPT/HCPCS: 66984; A9270; J3490; J7120

== ENCOUNTER 2023-11-22 13:07 | Outpatient (CLI) | payer MEDICARE | END 2023-11-22 23:59 | disposition short-term general hospital (02) | LOC: EMS 13:07 | DX: I48.91 Unspecified atrial fibrillation (principal); I49.9 Cardiac arrhythmia, unspecified | CPT/HCPCS: A0425; A0427; A0888 ==

== ENCOUNTER 2023-12-23 10:59 | Outpatient (CLI) | payer MEDICARE ==
[2023-12-23 18:01] LABS: HCT - HEMATOCRIT 44.1 % (37.0-47.0); HGB - HEMOGLOBIN 14.1 g/dL (12.0-16.0); MEAN CORPUSCULAR HEMOGLOBIN 30.6 pg (27.0-31.0); MEAN CORPUSCULAR VOLUME 95.7 fL (81.0-99.0); MEAN PLATELET VOLUME 10.1 fL (7.9-10.8); RED BLOOD COUNT 4.61 10^6/uL (4.20-5.40); RED CELL DISTRIBUTION WIDTH 12.6 % (12.0-15.0); WHITE BLOOD COUNT 5.9 x10^3/uL (4.8-10.8)
[2023-12-23 18:18] LABS: BUN - BLOOD UREA NITROGEN 23 mg/dL (6-20); CALCIUM 10.5 mg/dL (8.5-10.3); CARBON DIOXIDE - CO2 32 mmol/L (21-32); CHLORIDE 105 mmol/L (101-111); CHOL/HDL RATIO 2.5 (<4.4); CHOLESTEROL 108 mg/dL; GFR - MDRD 54 (>89); GLUCOSE 90 mg/dL (74-104); HDL CHOLESTEROL 43 mg/dL; LDL CHOLESTEROL,CALCULATED 39 mg/dL; LDL/HDL RATIO 0.9 (<4.4); POTASSIUM 4.4 mmol/L (3.5-4.5); SODIUM 141 mmol/L (135-145); TRIGLYCERIDES 132 mg/dL (48-352); VLDL CHOLESTEROL 26 mg/dL
[2023-12-23 18:27] LABS: THYROID STIMULATING HORMONE 1.41 uIU/mL (0.34-5.60)
[2023-12-23 21:55] LABS: ESTIMATED AVERAGE GLUCOSE 114 mg/dL (70-100); HEMOGLOBIN A1c% 5.6 % (4.27-6.07)
== END 2023-12-23 11:00 | disposition home or self-care (01) ==
LOC: LAB.N 10:59
PROVIDERS: ATTEND Family Medicine
DX: N18.30 Chronic kidney disease, stage 3 unspecified (principal); I25.5 Ischemic cardiomyopathy; I48.0 Paroxysmal atrial fibrillation; I50.22 Chronic systolic (congestive) heart failure
CPT/HCPCS: 36415; 80048; 80061; 83036; 83721; 83880; 84443; 85027

== ENCOUNTER → 2023-12-30 | Outpatient (CLI) | payer MEDICARE | LOC: LAB.N 08:00 | PROVIDERS: ATTEND Specialist | DX: Z79.01 Long term (current) use of anticoagulants (principal); I48.0 Paroxysmal atrial fibrillation; G45.9 Transient cerebral ischemic attack, unspecified ==

== ENCOUNTER 2024-01-08 08:00 | Outpatient (CLI) | payer MEDICARE | END 2024-01-08 08:01 | disposition home or self-care (01) | LOC: LAB.N 08:00 | PROVIDERS: ATTEND Family Medicine | DX: I48.0 Paroxysmal atrial fibrillation (principal); Z79.01 Long term (current) use of anticoagulants; G46.4 Cerebellar stroke syndrome; G45.9 Transient cerebral ischemic attack, unspecified ==

== ENCOUNTER 2024-01-15 08:00 | Outpatient (CLI) | payer MEDICARE | END 2024-01-15 08:01 | disposition home or self-care (01) | LOC: LAB.N 08:00 | PROVIDERS: ATTEND Family Medicine | DX: I48.0 Paroxysmal atrial fibrillation (principal); Z79.01 Long term (current) use of anticoagulants; G46.4 Cerebellar stroke syndrome; G45.9 Transient cerebral ischemic attack, unspecified ==

== ENCOUNTER 2024-01-22 08:00 | Outpatient (CLI) | payer MEDICARE | END 2024-01-22 08:01 | disposition home or self-care (01) | LOC: LAB.WCP 08:00 | PROVIDERS: ATTEND Family Medicine | DX: I48.0 Paroxysmal atrial fibrillation (principal); Z79.01 Long term (current) use of anticoagulants ==

== ENCOUNTER 2024-02-05 08:00 | Outpatient (CLI) | payer MEDICARE | END 2024-02-05 23:59 | disposition home or self-care (01) | LOC: LAB.WCP 08:00 | PROVIDERS: ATTEND Family Medicine | DX: I48.0 Paroxysmal atrial fibrillation (principal); Z79.01 Long term (current) use of anticoagulants ==